=== PATIENT | female | born 1965 | race Caucasian/White ===

== ENCOUNTER → 2016-08-06 | Outpatient (CLI) | payer BC ==
[2015-11-29 09:58] VITALS: BP 114/80
[~2016-08-06] MED LIST: ALPR0.5T PO; ASPI81TA50 PO; ATOR40TA59 PO; BUPR300T4 PO; CALC-77 PO; DICL50TA4 PO; DOCU-27 PO; GABA600T2 PO; ICOS1CAP PO; LEVO50TA5 PO; MULT-208 PO; OMEP20CA9 PO; ONDA4TAB12 PO; POLY17PO29 PO; PROP10TA PO; QUET400T6 PO; SUMA100T4 PO; TRAZ50TA15 PO; TRIA1TAB3 PO
--- NOTE | 2016-08-06 14:38 | KCIC ---
MRI left foot without contrast dated 08/06/2016 1:15 PM Indication: Left foot pain pain after injury 2 weeks ago pain across top of midfoot. Questionable fracture seen on x-ray Comparison: No comparison is available. Technique: Routine multiplanar multisequence imaging performed. No contrast administered. Findings: T2 hyperintense signal abnormality at the base of third metatarsal with possible small hypointense line extending to the articular surface. There is associated mild periosteal edema without significant displacement. There is also a rounded area of T2 hyperintense signal abnormality within the marrow of the base of second metatarsal, without discrete fracture line. No cortical disruption. Lisfranc ligament is intact. Minimal increased signal within the marrow of the base of the fourth metatarsal, without discrete fracture line. Bone marrow signal is otherwise homogeneous. Alignment is anatomic. Mild hypertrophic changes at the Lisfranc joints. No additional bony or soft tissue abnormality. IMPRESSION: 1. Nonspecific bone marrow edema at the base of third and fourth metatarsals. There may be a small nondisplaced fracture line at the base of the third metatarsal. Consider posttraumatic causes or stress reaction. 2. Small cystic lesion within the marrow of the base of the second metatarsal, indeterminate. This may represent a simple bone cyst or other benign cystic lesion. There is no apparent fracture or Lisfranc ligament injury. Electronically signed by: Juan Christopher MD (08/06/2016 2:34 PM)
== END | disposition home or self-care (01) ==
LOC: KCIC MRI 13:17
PROVIDERS: ATTEND Family Medicine
DX: M79.672 Pain in left foot (principal)
CPT/HCPCS: 73718

== ENCOUNTER → 2017-02-08 | Outpatient (CLI) | payer BC ==
[2015-11-29 09:58] VITALS: BP 114/80
[~2017-02-08] MED LIST changes: +DOCU-109 PO; -DOCU-27 PO
--- NOTE | 2017-02-08 14:48 | KCIC ---
UPPER EXT JOINT WO CONT RIGHT dated 02/08/2017 2:00 PM Indication: Right shoulder pain , pain for years. History of prior tear. Comparison: No comparison is available. Technique: Routine multiplanar multisequence imaging performed. . Findings: Study is limited due to motion artifact. Intermediate T2 signal throughout the supraspinatus and infraspinatus portions of the rotator cuff. Focal undersurface partial tearing of the central and anterior supraspinatus footplate. The articular surface fibers are retracted to about the 12:00 position. There are thin bursal surface fibers that remain attached and the cuff is thinned by about 60-70 percent. No full-thickness tear. The subscapularis is thickened but otherwise intact. Mild hypertrophic change of the acromioclavicular joint. No significant undersurface spurring. Acromion type I morphology. Small amount of subacromial/subdeltoid bursal fluid. Mild increased signal within the substance of the long head biceps tendon proximally. Extra articular portion courses within the bicipital groove. Biceps anchor intact. Glenoid labrum not well evaluated due to motion artifact. There is some linear increased signal within the posterior superior labrum identified on the coronal sequences. No apparent displaced tear or para labral cyst. Moderate degenerative change of the glenohumeral joint with small marginal osteophytes. Blunted morphology of the inferior labrum. No joint effusion or loose body. Suprascapular and spinoglenoid notches are clear. No significant muscle edema or muscle atrophy. IMPRESSION: 1. Moderate rotator cuff tendinopathy with moderate grade articular surface partial tearing of the supraspinatus. No full-thickness tear identified. Please see above report for details. 2. 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 There is blunted morphology of the anterior and posterior labrum, suggesting degenerative labral tearing. 3. Mild AC joint arthropathy. 4. Mild proximal biceps tendinosis Electronically signed by: Juan Christopher MD (02/08/2017 2:45 PM) [id number]
== END | disposition home or self-care (01) ==
LOC: KCIC MRI 13:43
PROVIDERS: ATTEND Nurse Practitioner Adult Health
DX: M00-M99 Diseases of the musculoskeletal system and connective tissue (principal); M75.101 Unspecified rotator cuff tear or rupture of right shoulder, not specified as traumatic; M12.811 Other specific arthropathies, not elsewhere classified, right shoulder
CPT/HCPCS: 73221

== ENCOUNTER → 2017-04-07 | Outpatient (CLI) | payer BC | END | disposition home or self-care (01) | LOC: KCIC MRI 12:52 | DX: S93.491A Sprain of other ligament of right ankle, initial encounter (principal); S90.01XA Contusion of right ankle, initial encounter; X58.XXXA Exposure to other specified factors, initial encounter; Y93.89 Activity, other specified; Y92.89 Other specified places as the place of occurrence of the external cause; Y99.8 Other external cause status | CPT/HCPCS: 73721 ==

== ENCOUNTER → 2017-04-22 | Outpatient (CLI) | payer BC | END | disposition home or self-care (01) | LOC: KCIC MRI 15:36 | DX: M47.896 Other spondylosis, lumbar region (principal) | CPT/HCPCS: 72148 ==

== ENCOUNTER → 2017-06-07 | Outpatient (CLI) | payer BC | END | disposition home or self-care (01) | LOC: PNCL 10:03 | DX: I10 Essential (primary) hypertension (principal); E11.9 Type 2 diabetes mellitus without complications; M54.16 Radiculopathy, lumbar region; K21.9 Gastro-esophageal reflux disease without esophagitis; M51.26 Other intervertebral disc displacement, lumbar region; F32.9 Major depressive disorder, single episode, unspecified; M19.90 Unspecified osteoarthritis, unspecified site; Z90.49 Acquired absence of other specified parts of digestive tract; Z90.710 Acquired absence of both cervix and uterus | CPT/HCPCS: 99214 ==

== ENCOUNTER → 2017-06-21 | Outpatient (CLI) | payer BC ==
[~2017-06-21] MED LIST changes: -ALPR0.5T PO; -ASPI81TA50 PO; -ATOR40TA59 PO; -BUPR300T4 PO; -CALC-77 PO; -DICL50TA4 PO; -DOCU-109 PO; -GABA600T2 PO; -ICOS1CAP PO; +IOHEXOL 180 MG/ML 10 ML VIAL.; -LEVO50TA5 PO; -MULT-208 PO; -OMEP20CA9 PO; -ONDA4TAB12 PO; -POLY17PO29 PO; -PROP10TA PO; -QUET400T6 PO; -SUMA100T4 PO; -TRAZ50TA15 PO; -TRIA1TAB3 PO; +methylPREDNISolone ACETATE 40 MG/ML VIAL.; +methylPREDNISolone ACETATE 80 MG/ML VIAL.
== END ==
LOC: PNCL 07:49
DX: M51.16 Intervertebral disc disorders with radiculopathy, lumbar region (principal)
CPT/HCPCS: 62323; J1030; J1040; Q9965

== ENCOUNTER → 2017-07-05 | Outpatient (CLI) | payer BC | END | disposition home or self-care (01) | LOC: PNCL 10:21 | DX: M51.16 Intervertebral disc disorders with radiculopathy, lumbar region (principal) | CPT/HCPCS: 99212 ==

== ENCOUNTER → 2017-07-20 | Outpatient (CLI) | payer BC | END | disposition home or self-care (01) | LOC: PNCL 10:31 | DX: M51.16 Intervertebral disc disorders with radiculopathy, lumbar region (principal); E78.00 Pure hypercholesterolemia, unspecified; K21.9 Gastro-esophageal reflux disease without esophagitis; E03.9 Hypothyroidism, unspecified; F41.9 Anxiety disorder, unspecified; F32.9 Major depressive disorder, single episode, unspecified; M79.7 Fibromyalgia; M19.90 Unspecified osteoarthritis, unspecified site; Z98.51 Tubal ligation status; Z90.710 Acquired absence of both cervix and uterus; Z88.0 Allergy status to penicillin; Z88.8 Allergy status to other drugs, medicaments and biological substances | CPT/HCPCS: 62323; J1030; J1040; Q9965 ==

== ENCOUNTER → 2017-08-12 | Outpatient (CLI) | payer BC | END | disposition home or self-care (01) | LOC: PNCL 09:57 | DX: M51.16 Intervertebral disc disorders with radiculopathy, lumbar region (principal) | CPT/HCPCS: 99212 ==

== ENCOUNTER → 2017-09-10 | Outpatient (CLI) | payer BC ==
[~2017-09-10] MED LIST changes: +LIDOCAINE 1% PF 2 ML VIAL.
== END | disposition home or self-care (01) ==
LOC: PNCL 09:28
DX: M51.16 Intervertebral disc disorders with radiculopathy, lumbar region (principal); Z88.0 Allergy status to penicillin; Z88.8 Allergy status to other drugs, medicaments and biological substances; E78.00 Pure hypercholesterolemia, unspecified; K21.9 Gastro-esophageal reflux disease without esophagitis; Z90.710 Acquired absence of both cervix and uterus; Z98.51 Tubal ligation status; M19.90 Unspecified osteoarthritis, unspecified site; M79.7 Fibromyalgia; E03.9 Hypothyroidism, unspecified; F41.9 Anxiety disorder, unspecified; F32.9 Major depressive disorder, single episode, unspecified
CPT/HCPCS: 62323; J1030; J1040; Q9965

== ENCOUNTER → 2020-07-16 | Day surgery (SDC) | payer BC ==
[~2020-07-16] MED LIST changes: +ALPR0.5T PO; +ASPI81TA50 PO; +ATOR40TA PO; +ATOR40TA59 PO; +BUPR1PAT8 TP; +BUPR200T3 PO; +BUPR300T92 PO; +CALC-77 PO; +CELE100C PO; +CLON0.5T PO; +DICL50TA4 PO; +DOCU-109 PO; +DULO60CA6 PO; +FLUO90CA5 PO; +GABA300C18 PO; +GABA600T7 PO; +ICOS1CAP PO; -IOHEXOL 180 MG/ML 10 ML VIAL.; +IV RINGERS,LACTATED 1000ML 1,000 ML IV SCH; +LAMO25TA5 PO; +LEVO50TA5 PO; -LIDOCAINE 1% PF 2 ML VIAL.; +LINZESS290 MCG PO; +LISD20CA4 PO; +MULT-208 PO; +NITR50CA11 PO; +OMEP20CA16 PO; +ONDA4TAB12 PO; +POLY17PO29 PO; +PROP10TA PO; +PROPOFOL 10 MG/ML (20ML) VIAL. IV ONE; +QUET400T7 PO; +SUMA100T4 PO; +TRAZ-118 PO; +TRIA1TAB3 PO; +UBRO50TA PO; -methylPREDNISolone ACETATE 40 MG/ML VIAL.; -methylPREDNISolone ACETATE 80 MG/ML VIAL.
[2020-07-16 14:37] VITALS: BP 115/78
--- NOTE | 2020-07-18 15:11 | PATHOLOGY ---
[facility] Accession Number: [id number] . 01 Material submitted: . PART A: colon - MID TRANSVERSE COLON POLYP. Modifiers: mid, transverse PART B: anastomosis - ANASTOMOTIC SITE ULCER . 01 Clinical history: . CHANGE IN BOWEL HABITS,CONSTIPATION,HISTORY OF POLYPS COLONOSCOPY DIAGNOSED WITH POLYP . 02 Diagnosis: A. Colon biopsy, mid transverse colon polyp: - Polypoid segment of granulation tissue showing acute and chronic inflammation. . B. Colon biopsies, anastomotic site ulcer: - Segments of colonic mucosa showing acute and chronic inflammation and reactive glandular epithelial atypia. (JPM:sherice; 07/18/2020) S 07/18/2020 1459 Local . 02 Comment: There is no evidence of malignancy. (JPM:sherice; 07/18/2020) . 02 Electronically signed: . Yanick Avila MD, Pathologist NPI- [id number] . 01 Gross description: . A. The specimen is received in formalin, labeled "Carole Garner, mid transverse colon polyp". Received is a segment of pale augustin tissue measuring 0.6 cm in maximum dimensions. The specimen is submitted entirely in cassette A1. . B. The specimen is received in formalin, labeled "Carole Garner, anastomotic site ulcer". Received are two segments of pale augustin tissue measuring 0.2 and 0.4 cm in maximum dimensions. The specimen is submitted entirely in cassette B1. ([facility]; 07/17/2020) QAC/QAC 07/17/2020 1625 Local . 02 Pathologist provided ICD-10: K52.9, R19.4 . 02 CPT . 087019, 731014 Specimen Comment: A courtesy copy of this report has been sent to [phone], [phone] Specimen Comment: [id number] Specimen Comment: Report sent to / DR BUCHANAN Specimen Comment: A duplicate report has been generated due to demographic updates. Performed at: 01 [facility] [id number] [address] [id number] MD Pascual Joya MD Phone: [phone] [facility]formed at: [facility] [address] [place], [place] [id number] MD Yanick Avila MD Phone: [phone]
== END | disposition home or self-care (01) ==
LOC: ENDOS 12:24
PROVIDERS: ATTEND Internal Medicine Gastroenterology
DX: R19.4 Change in bowel habit (principal); K64.0 First degree hemorrhoids; K52.9 Noninfective gastroenteritis and colitis, unspecified; K63.5 Polyp of colon; K63.89 Other specified diseases of intestine; I10 Essential (primary) hypertension; E78.00 Pure hypercholesterolemia, unspecified; E03.9 Hypothyroidism, unspecified; K21.9 Gastro-esophageal reflux disease without esophagitis; G47.30 Sleep apnea, unspecified; M19.90 Unspecified osteoarthritis, unspecified site; F41.9 Anxiety disorder, unspecified; F32.9 Major depressive disorder, single episode, unspecified; Z20.822 Contact with and (suspected) exposure to COVID-19; Z90.710 Acquired absence of both cervix and uterus; Z98.51 Tubal ligation status; Z98.890 Other specified postprocedural states; Z79.82 Long term (current) use of aspirin; Z79.899 Other long term (current) drug therapy; Z88.0 Allergy status to penicillin; Z88.8 Allergy status to other drugs, medicaments and biological substances
CPT/HCPCS: 45380; 45385; 87426; 88305; J2704; 45382